=== PATIENT | female | born 1985 | race African-American/Black ===

== ENCOUNTER 2017-07-05 05:33 | Emergency (ER) | payer OTHER ==
[~2017-07-05] VITALS: Ht 165.1 cm; Wt 72.6 kg
[~2017-07-05 05:33] MED LIST: COLACE100 MG PO; DEPO-PROVE150 MG/11; ESTROGEN-METHY1 EAC2 PO; FEOSOL325 M1 PO; HYDROCHLOROTHIA25 M1 PO; HYDROCHLOROTHIA25 M2 PO; HYDROCODONE-AP1 EAC6 PO; IBUPROFEN 800800 M1 PO; IRON325 PO; PROTONIX40 MG PO; TRAMADOL 50 MG50 MG PO; TRIPLE ANTIBIOT30 G2 TP
[2017-07-05] MEDS ORDERED: NOHOMEMEDICATIONS (05:47)
[2017-07-05 06:18] VITALS: BP 130/76
== END 2017-07-05 06:20 | disposition home or self-care (01) ==
LOC: ER 05:33
DX: R22.32 Localized swelling, mass and lump, left upper limb (principal); I10 Essential (primary) hypertension; F17.210 Nicotine dependence, cigarettes, uncomplicated

== ENCOUNTER 2021-02-10 03:52 | Emergency (ER) | payer OTHER ==
[~2021-02-10] VITALS: Ht 162.6 cm; Wt 83.9 kg
[~2021-02-10 03:52] MED LIST changes: +NOHOMEMEDICATIONS
[2021-02-10 04:27] LABS: CREATININE 0.8 mg/dL (0.6-1.0); POTASSIUM 3.2 mmol/L (3.5-5.1)
[2021-02-10 04:28] LABS: URINE BILIRUBIN NEGATIVE (Negative); URINE BLOOD NEGATIVE (Negative); URINE CLARITY CLEAR; URINE COLOR YELLOW; URINE GLUCOSE-RANDOM* NEGATIVE (Negative); URINE KETONES 1+ (Negative); URINE LEUKOCYTES-REFLEX NEGATIVE (Negative); URINE NITRITE-REFLEX NEGATIVE (Negative); URINE PROTEIN (DIPSTICK) 2+ (Negative); URINE SPECIFIC GRAVITY 1.015 (1.005-1.035)
[2021-02-10 04:30] LABS: HEMATOCRIT 33.7 % (37.0-47.0); HEMOGLOBIN 10.6 gm/dL (12.0-15.0); MCH 21.9 pg (26.0-34.0); MCHC 31.4 g/dL (28.0-37.0); MCV 69.7 fL (80.0-100.0); PLATELET COUNT 232 thou/uL (150-400); RBC 4.83 mil/uL (4.20-5.00); RDW 18.2 % (10.5-14.5); WBC 4.4 thou/uL (4.0-11.0)
[2021-02-10 04:33] LABS: ALBUMIN 3.5 g/dL (3.4-5.0); TOTAL BILIRUBIN 0.6 mg/dL (0.2-1.0)
[2021-02-10] MEDS ORDERED: IRON18 M1 PO (04:34)
[2021-02-10] MEDS ORDERED: IRON325 M1 PO (04:35)
[2021-02-10 04:44] LABS: BACTERIA-REFLEX None Seen /HPF (None Seen); CASTS None Seen /LPF (None Seen); CRYSTALS None Seen /LPF (None Seen); MUCUS None Seen strn/LPF (None Seen); SQUAMOUS 4-10 Moderate /LPF (0-3); URINE RBC 1-2 Rare /HPF (NONE SEEN); URINE WBC-REFLEX 0-5 Rare /HPF (0-5)
[2021-02-10] MEDS ORDERED: FLAGYL500 M1 PO (06:03)
[2021-02-10 06:08] LABS: ABSOLUTE NEUTROPHILS 2.3 thou/uL (1.4-8.2); ANISOCYTOSIS 1+; HYPOCHROMASIA 2+; MICROCYTES 2+; PLATELET ESTIMATE NORMAL
[2021-02-10 07:37] VITALS: BP 115/67
== END 2021-02-10 06:30 | disposition home or self-care (01) ==
LOC: ER 03:52
PROVIDERS: Emergency Medicine
DX: A59.9 Trichomoniasis, unspecified (principal); R10.84 Generalized abdominal pain; I10 Essential (primary) hypertension; Z90.89 Acquired absence of other organs; Z79.899 Other long term (current) drug therapy; Z87.891 Personal history of nicotine dependence